=== PATIENT | male | born 1935 | race Caucasian/White ===

== ENCOUNTER 2017-02-10 01:03 | Emergency (ER) | payer OTHER ==
[2017-02-10] MEDS ORDERED: LIDOCAINE VISCOUS 2% 15 ML UDC ONE (01:26)
[2017-02-10] MEDS ORDERED: MAG-AL PLUS XS SUSP 30 ML UDC ONE (01:26)
[2017-02-10 01:38] LABS: BASOPHILS 0.8 % (0.0-2.0); EOSINOPHILS 7.1 % (0.0-6.0); EOSINOPHILS# 0.3 X 10^3uL (0.0-0.4); HEMATOCRIT 36.4 % (42.0-54.0); HEMOGLOBIN 12.2 g/dL (14.0-18.0); LYMPHOCYTES 27.6 % (20.0-40.0); LYMPHOCYTES# 1.3 X 10^3uL (0.8-3.8); MEAN CELL VOLUME 86.4 fL (80.0-100.0); MEAN CORPUS. HGB CONCENTRATION 33.6 g/dL (32.0-36.0); MEAN PLATELET VOLUME 8.9 fL (7.4-10.4); MONOCYTES 13.8 % (2.0-10.0); MONOCYTES# 0.6 X 10^3uL (0.2-1.0); NEUTROPHILS 50.7 % (54.0-75.0); NEUTROPHILS# 2.5 X 10^3uL (2.6-6.7); PLATELET COUNT 177 X 10^3uL (130-440); RED BLOOD COUNT 4.22 X 10^6uL (4.20-6.10); WHITE BLOOD COUNT 4.7 X 10^3uL (3.9-10.7)
[2017-02-10 01:39] LABS: BLOOD UREA NITROGEN 25 mg/dL (9-20); CALCIUM 8.9 mg/dL (8.4-10.2); CHLORIDE 100 mmol/L (98-107); GLUCOSE 100 mg/dL (70-100); MAGNESIUM 2.2 mg/dL (1.6-2.3); POTASSIUM 4.3 mmol/L (3.5-5.1); SODIUM 142 mmol/L (137-145)
[2017-02-10 01:50] LABS: TROPONIN I < 0.012 ng/mL (0.00-0.034)
[2017-02-10] MEDS ORDERED: FAMOTIDINE 20 MG TABLET ONE (01:57)
[2017-02-10] MEDS ORDERED: ONDANSETRON ODT 4 MG TAB.RAPDIS ONE (01:57)
[2017-02-10] MEDS ORDERED: SODIUM CHLORIDE NASAL SPRAY 44 SPRAY/44 ML BTL NASAL ONE (02:17)
[2017-02-10] MEDS ORDERED: NITROGLYCERIN 0.4 MG TAB.SUBL SUBLINGUAL ONE ×2 (02:19→02:33)
[2017-02-10] MEDS ORDERED: MORPHINE SULFATE 2 MG/ML SYR ONE (02:37)
--- NOTE | 2017-02-10 03:15 | RADIOLOGY REPORT ---
HISTORY: Chest pain COMPARISON: None. FINDINGS: 1 view of the chest obtained. Sternotomy wires and mediastinal surgical clips are noted. There is no consolidation. There is no pleural effusion. There is no pneumothorax. The cardiomediastinal silh ouette is normal. There is no abnormality of the pulmonary vessels. There is no focal lung parenchy mal nodule. Osseous structures are unremarkable for age. IMPRESSION: No acute cardiopulmonary process is evident. Changes related to coronary artery bypass grafting are n oted. Final Electronic Signature: This report was electronically signed by Davis Rose MD on 02/10/2017 3 :12 AM. [email or web address] /
--- NOTE | 2017-02-10 03:51 | CT REPORT ---
HISTORY: Chest pain COMPARISON: None. TECHNIQUE: This examination was performed using automated exposure control, adjustment of mA or kV according to patient size, and/or use of iterative reconstruction technique. Axial CT imaging from the thoracic i nlet through the upper abdomen following administration of IV contrast during peak opacification of t he pulmonary arteries, multiplanar reformatted and 3-D images are evaluated. 80cc Isovue 300 and contrast. FINDINGS: There is no consolidation, pleural effusion, or pneumothorax. There is some atelectasis at both lung bases. Sternotomy wires and mediastinal surgical clips are noted. There is a moderate size hiatal hernia. Th e great vessels are normal size. There is no mediastinal or hilar lymphadenopathy. There is no focal bone lesion. A few calcified gallstones are present in the gallbladder. Descending aorta, aortic arch, descending thoracic aorta widely patent, visualized portions of the in nominate artery, left and right subclavian, left and right vertebral, and left and right common carot id arteries patent, no aneurysm, dissection, or flow limiting stenosis. There is sufficient contrast within the pulmonary arteries to exclude a pulmonary embolus. IMPRESSION: 1. No aortic aneurysm or dissection. 2. No pulmonary embolism. 3. Evidence of prior coronary artery bypass graft surgery. 4. Cholelithiasis. Final Electronic Signature: This report was electronically signed by Davis Rose MD on 02/10/2017 3 :49 AM. [email or web address] /
--- NOTE | 2017-02-10 04:42 | ER PHYSICIAN DOCUMENTATION ---
Physician Documentation [facility] Name:Sonu Lewis Age:81 yrs Sex:Male :1935 Arrival Date:02/10/2017 Time:01:03 BedTrauma-C Private MD:Physician, No ED Andrez Iniguez Disposition: 02/10 01:17 Critical Care: not applicable. ar Disposition: 02/10/17 04:18 Discharged to Home/Self Care. Impression: Atypical Chest Pain. - Condition is Good. - Discharge Instructions: CHEST PAIN Atypical - CHEST PAIN, Uncertain Cause. - Medical Reconciliation form form. - Follow up: Private Physician; When: 4- 6 days; Reason: Recheck today's complaints, Continuance of care. - Problem is new. - Symptoms are resolved. HPI: 01:13 This 81 yrs old Male presents to ER with complaints of Chest Pain, Breathing sc Difficulty. 01:13 The patient or guardian reports chest pain that is located primarily in the epigastric sc area. Onset: at 10:00. The pain does not radiate. There has been no movement of pain. Associated signs and symptoms: The patient has no apparent associated signs or symptoms. The chest pain is described as causing indigestion. Duration: The patient or guardian reports a single episode, that is still ongoing. Modifying factors: The symptoms are alleviated by antacids, the symptoms are aggravated by nothing. Severity of pain: At its worst the pain was moderate in the emergency department the pain is unchanged. Historical: - Allergies: No known drug Allergies; - Home Meds: 1. losartan oral 2. Plavix Oral 3. Simvastatin Oral 4. Aspirin Oral 5. Metoprolol Tartrate Oral - PMHx: CAD; Hypertension; - PSHx: CABG; Tonsillectomy; - Tetanus: > 10 years. - Ebola Screening: : Patient denies exposure to infectious person. Patient denies travel to an Ebola-affected area in the 21 days before illness onset. . - Immunization history: Pneumococcal vaccine is up to date, Flu Vaccine < 1 year. - Social history: Smoking status: Patient states was never smoker of tobacco. Patient uses alcohol only on a social basis. ROS: 01:14 Constitutional: Negative for fever, chills, and weight loss. sc Eyes: Negative for injury, pain, redness, and discharge. ENT: Negative for injury, pain, and discharge. Neck: Negative for injury, pain, and swelling. Respiratory: Negative for shortness of breath, cough, wheezing, and pleuritic chest pain. Abdomen/GI: Negative for abdominal pain, nausea, vomiting, diarrhea, and constipation. Back: Negative for injury and pain. MS/Extremity: Negative for injury and deformity. Skin: Negative for injury, rash, and discoloration. 01:14 Neuro: Negative for headache, weakness, numbness, tingling, and seizure. sc 01:14 Cardiovascular: Positive for chest pain, Negative for orthopnea, palpitations, paroxysmal nocturnal dyspnea. Exam: Constitutional: This is a well developed, well nourished patient who is awake, alert, and in no acute distress. Head/Face: Normocephalic, atraumatic. Eyes: Pupils equal round and reactive to light, extra-ocular motions intact. Lids and lashes normal. Conjunctiva and sclera are non-icteric and not injected. Cornea within normal limits. Periorbital areas with no swelling, redness, or edema. ENT: Nares patent. No nasal discharge, no septal abnormalities noted. Tympanic membranes are normal and external auditory canals are clear. Oropharynx with no redness, swelling, or masses, exudates, or evidence of obstruction, uvula midline. Mucous membranes moist. Neck: Trachea midline, no thyromegaly or masses palpated, and no cervical lymphadenopathy. Supple, full range of motion without nuchal rigidity, or vertebral point tenderness. No meningismus. Chest/axilla: Normal chest wall appearance and motion. Nontender with no deformity. No lesions are appreciated. Cardiovascular: Regular rate and rhythm with a normal S1 and S2. No gallops, murmurs, or rubs. Normal PMI, no JVD. No pulse deficits. Respiratory: Lungs have equal breath sounds bilaterally, clear to auscultation and percussion. No rales, rhonchi or wheezes noted. No increased work of breathing, no retractions or nasal flaring. Abdomen/GI: Soft, non-tender, with normal bowel sounds. No distension or tympany. No guarding or rebound. No evidence of tenderness throughout. Back: No spinal tenderness. No costovertebral tenderness. Full range of motion. Skin: Warm, dry with normal turgor. Normal color with no rashes, no lesions, and no evidence of cellulitis. Neuro: Awake and alert, GCS 15, oriented to person, place, time, and situation. Cranial nerves II-XII grossly intact. Motor strength 5/5 in all extremities. Sensory grossly intact. Cerebellar exam normal. Normal gait. 01:17 Psych: Awake, alert, with orientation to person, place and time. Behavior, mood, and sc affect are within normal limits. 01:17 Cardiovascular: Rate: normal, Rhythm: regular. 01:17 Respiratory: the patient does not display signs of respiratory distress. Vital Signs: 01:40 BP 172 / 86; Pulse 71; Resp 18; Temp 98; Pulse Ox 95% on R/A; Weight 64.86 kg; Height 5 lb ft. 4 in. (162.56 cm); Pain 4/10; 02:00 BP 156 / 73; Pulse 69; Resp 16; Pulse Ox 95% ; lb 04:00 BP 147 / 72; Pulse 61; Resp 15; Pulse Ox 97% ; lb 04:31 BP 140 / 76; Pulse 64; Resp 12; Pulse Ox 95% on R/A; lb 04:40 BP 140 / 76; Pulse 64; Pulse Ox 96% on R/A; Pain 0/10; lb 01:40 Body Mass Index 24.55 (64.86 kg, 162.56 cm) lb MDM: 01:11 Patient medically screened. sc 01:12 ECG:. sc 01:17 Patient took aspirin within the past 24 hours. Patient did not receive fibrinolytic due sc to na. Data reviewed: vital signs, nurses notes, lab test result(s), EKG, and as a result, I will continue to observe the patient. Data interpreted: quality assurance monitor: rate is 70 beats/min, rhythm is normal sinus rhythm. 01:51 EKG attached lb 04:18 ED course: Abruptly pain free at 03:00 without recurrence.. ar 06 01:40 Order name: CBC AUTO DIF, MDIF/RMOR IF IND; Complete Time: 01:53 EDMS 02/10 01:43 Interpretation: Normal Except: HEMOGLOBIN 12.2; HEMATOCRIT 36.4. ar 02/10 01:43 Order name: BASIC METABOLIC PANEL; Complete Time: 01:53 EDMS 02/10 01:43 Interpretation: Normal Except: BLOOD UREA NITROGEN 25; CREATININE 1.5. ar 02/10 01:43 Order name: MAGNESIUM; Complete Time: 01:53 EDMS 02/10 01:43 Interpretation: Normal. ar 02/10 01:51 Order name: TROPONIN I; Complete Time: 01:53 EDMS 02/10 01:53 Interpretation: Normal. ar 02/10 02:35 Order name: DDIMER; Complete Time: 02:35 EDMS 02/10 04:19 Order name: TROPONIN I; Complete Time: 04:20 EDMS 02/10 04:20 Interpretation: Normal. ar 02/10 03:17 Order name: CHEST; SINGLE VIEW [id number]; Complete Time: 03:42 EDMS 02/10 03:42 Interpretation: Normal. ar 02/10 03:54 Order name: CAT SCAN; CHEST ANGIO [id number]; Complete Time: 04:07 EDMS 02/10 01:12 Order name: 12-lead EKG; Complete Time: 01:20 ar EC:12 Rate is 70 beats/min. Rhythm is regular. QRS [place] is Normal. AL interval is normal. QRS sc interval is normal. QT interval is normal. No Q waves. T waves are Normal. No ST changes noted. Clinical impression: Normal ECG. Interpreted by me. Reviewed by me. Dispensed Medications: 01:20 Drug: GI Cocktail w/o Donnatol - (Maalox Suspension 30 ml, Lidocaine Liquid 2 % 15 ml); lb Route: PO; 01:50 Follow up: Response: Pain is decreased lb 01:44 Drug: Zofran 4 mg; Route: PO; lb 02:21 Follow up: Response: Nausea is decreased lb 01:50 Drug: Pepcid 20 mg; Route: PO; lb 02:21 Follow up: Response: No change in condition lb 02:21 Drug: Nitroglycerin 0.4 mg; Route: Sublingual; lb 04:39 Follow up: Response: Pain is decreased lb 02:30 Drug: morphine 2 mg; Route: IVP; Site: right antecubital; lb 04:42 Follow up: Response: Pain is decreased lb 02:50 Drug: Nitro-Bid Ointment 2 % 1 inches; Route: Transdermal; Site: anterior chest wall; lb 04:40 Follow up: Response: Pain is decreased lb Signatures: Andrez Hunt MD MD sc Bollock, Lynda lb
--- NOTE | 2017-02-10 04:42 | ER NURSING DOCUMENTATION ---
Nurse's Notes [facility] Name:Sonu Lewis Age:81 yrs Sex:Male :1935 Arrival Date:02/10/2017 Time:01:03 BedTrauma-C Private MD:Physician, No Diagnosis:Atypical Chest Pain Presentation: 02/10 01:13 Acuity: REINIER 2 lb 01:20 Presenting complaint: Patient states: mid sternal chest pain started 1 to 2 hrs prior lb to arrival, radiates to his back. started after eating prydeinig food last tila. felt like his heart was racing. Transition of care: Home. AIR CAT ACTIVATION no. 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 Notified ED Physician of Dr. Hunt notified. 01:20 Method Of Arrival: Wheelchair lb 01:22 Activity prior to arrival: None. lb Triage Assessment: 01:24 General: Appears in no apparent distress, Behavior is appropriate for age, pleasant. lb Pain: Complains of pain in mid-sternal area Pain radiates to thoracic area Pain currently is 4 out of 10 on a pain scale. Quality of pain is described as dull. Cardiovascular: Capillary refill < 3 seconds JVD is absent Rhythm is sinus rhythm Chest pain began 2 hours prior to arrival. Respiratory: No deficits noted. Historical: - Allergies: No known drug Allergies; - Home Meds: 1. losartan oral 2. Plavix Oral 3. Simvastatin Oral 4. Aspirin Oral 5. Metoprolol Tartrate Oral - PMHx: CAD; Hypertension; - PSHx: CABG; Tonsillectomy; - Tetanus: > 10 years. - Ebola Screening: : Patient denies exposure to infectious person. Patient denies travel to an Ebola-affected area in the 21 days before illness onset. . - Immunization history: Pneumococcal vaccine is up to date, Flu Vaccine < 1 year. - Social history: Smoking status: Patient states was never smoker of tobacco. Patient uses alcohol only on a social basis. Screenin:41 Infectious Disease Risk None. Abuse screen: Denies threats or abuse. Denies injuries lb from another. Nutritional screening: No deficits noted. Assessment: 01:40 See Triage Assessment done by same RN. Pain: Complains of pain in mid-sternal area Pain lb radiates to thoracic area Pain currently is 4 out of 10 on a pain scale. Quality of pain is described as dull, Pain began 2 hours ago. Vital Signs: 01:40 BP 172 / 86; Pulse 71; Resp 18; Temp 98; Pulse Ox 95% on R/A; Weight 64.86 kg; Height 5 lb ft. 4 in. (162.56 cm); Pain 4/10; 02:00 BP 156 / 73; Pulse 69; Resp 16; Pulse Ox 95% ; lb 04:00 BP 147 / 72; Pulse 61; Resp 15; Pulse Ox 97% ; lb 04:31 BP 140 / 76; Pulse 64; Resp 12; Pulse Ox 95% on R/A; lb 04:40 BP 140 / 76; Pulse 64; Pulse Ox 96% on R/A; Pain 0/10; lb 01:40 Body Mass Index 24.55 (64.86 kg, 162.56 cm) lb ED Course: 01:04 Patient arrived in ED. ma1 01:04 Physician, Krupa is Private Physician. ma1 01:11 Andrez Hunt MD is Attending Physician. sc 01:13 Kimmy Grady is Primary Nurse. lb 01:13 Triage completed. lb 01:[address] Hunt notified. lb 01:41 EKG done. (by ED staff). lb 01:41 Valuables Remains with patient. systems coordinator on. Pulse ox on. NIBP on. lb 01:51 EKG attached lb 02:39 Port Xray Completed. mr 03:[address] mr 03:[address]. mr Administered Medications: 01:20 Drug: GI Cocktail w/o Donnatol - (Maalox Suspension 30 ml, Lidocaine Liquid 2 % 15 ml); lb Route: PO; 01:50 Follow up: Response: Pain is decreased lb 01:44 Drug: Zofran 4 mg; Route: PO; lb 02:21 Follow up: Response: Nausea is decreased lb 01:50 Drug: Pepcid 20 mg; Route: PO; lb 02:21 Follow up: Response: No change in condition lb 02:21 Drug: Nitroglycerin 0.4 mg; Route: Sublingual; lb 04:39 Follow up: Response: Pain is decreased lb 02:30 Drug: morphine 2 mg; Route: IVP; Site: right antecubital; lb 04:42 Follow up: Response: Pain is decreased lb 02:50 Drug: Nitro-Bid Ointment 2 % 1 inches; Route: Transdermal; Site: anterior chest wall; lb 04:40 Follow up: Response: Pain is decreased lb Outcome: 01:58 Discharge ordered by . la 04:18 Discharge ordered by . la 04:40 Discharged to home ambulatory. lb 04:40 Condition: improved 04:40 Discharge Assessment: Patient awake, alert and oriented x 3. No cognitive and/or functional deficits noted. Patient verbalized understanding of disposition instructions. 04:40 Instructed on discharge instructions, follow up and referral plans. 04:40 IV D/Mac 04:41 Patient left the ED. 02/11 10:41 Discharge F/U Call: Overall Care on a scale of 1-10 with 10 being the best care, you tg rate our care as: Other comments: Pt feeling great, appreciative of care. Signatures: Dano Kaiser, RN RN tg Andrez Hunt MD MD sc Bollock, Lynda lb Addison, Melissa ma1 Deuce Locke mr
== END 2017-02-10 04:42 | disposition home or self-care (01) ==
LOC: ER 01:03
DX: R07.89 Other chest pain (principal); R10.13 Epigastric pain; I25.10 Atherosclerotic heart disease of native coronary artery without angina pectoris; I10 Essential (primary) hypertension; Z79.899 Other long term (current) drug therapy; Z79.82 Long term (current) use of aspirin; Z79.02 Long term (current) use of antithrombotics/antiplatelets
CPT/HCPCS: 36415; 71010; 71275; 80048; 83735; 84484; 85025; 85379; 93005; 96374; 99285; J2270